=== PATIENT | female | born 1995 | race African-American/Black ===

== ENCOUNTER 2023-08-14 16:54 | Emergency (ER) | payer OTHER ==
[2023-08-14 17:29] VITALS: BP 107/70; PULSE 81; RESP 16; TEMP 97.8; BMI 29.2
[2023-08-14] MEDS ORDERED: ACETAMINOPHEN 500 MG TABLET (FP) PO ONE (18:48)
[2023-08-14] MEDS ORDERED: ACETAMINOPHEN 500 MG TABLET (FP) ONE (18:50)
[2023-08-14] MEDS ORDERED: CYCLOBENZAPRINE HCL 5 MG TABLET ONE (18:50)
[2023-08-14] MEDS ORDERED: CYCLOBENZAPRINE HCL 5 MG TABLET PO ONE (19:00)
== END 2023-08-14 20:55 | disposition home or self-care (01) ==
LOC: FER 16:54
DX: M54.2 Cervicalgia (principal); M54.9 Dorsalgia, unspecified; R42 Dizziness and giddiness; R11.0 Nausea; S16.1XXA Strain of muscle, fascia and tendon at neck level, initial encounter; S29.012A Strain of muscle and tendon of back wall of thorax, initial encounter; V49.40XA Driver injured in collision with unspecified motor vehicles in traffic accident, initial encounter; Y93.I9 Activity, other involving external motion
CPT/HCPCS: 70450-TC; 71045-TC-FY; 72125-TC; 72128-TC; 81025; 99285-25